=== PATIENT | male | born 1950 | race Caucasian/White ===

== ENCOUNTER 2023-01-18 14:07 | Emergency (ER) | payer OTHER ==
[~2023-01-18] VITALS: Ht 180.3 cm; Wt 57.6 kg
[2023-01-18 14:15] VITALS: BP_SYST 121; PULSE 100; RESP 18; TEMP 98.3; O2SAT 98
[2023-01-18] MEDS ORDERED: NACL 0.9% 1,000 ML IV ONE (14:30)
[2023-01-18 15:09] LABS: BASOPHILS # (AUTO) 0.1 K/uL (0.0-0.2); EOSINOPHILS # (AUTO) 0.1 K/uL (0.0-0.4); EOSINOPHILS % (AUTO) 1.3 % (0.0-4.0); HEMATOCRIT 41.5 % (36-54); HEMOGLOBIN 13.7 g/dL (14.0-18.0); LYMPHOCYTES # (AUTO) 0.8 K/uL (1.0-5.5); LYMPHOCYTES % (AUTO) 14.8 % (20.5-51.5); MEAN CORPUSCULAR HEMOGLOBIN 30 pg (27-31); MEAN CORPUSCULAR HGB CONC 33 % (32-36); MEAN CORPUSCULAR VOLUME 91 fL (79.0-98.0); MONOCYTES # (AUTO) 0.4 K/uL (0.0-1.0); MONOCYTES % (AUTO) 6.8 % (1.7-9.3); NEUTROPHILS # (AUTO) 4.1 K/uL (1.8-7.7); NEUTROPHILS % (AUTO) 76.1 % (40.0-70.0); PLATELET COUNT (AUTO) 295 K/uL (130-430); RED BLOOD CELL COUNT(AUTO) 4.56 MIL/uL (4.2-6.2); RED CELL DISTRIBUTION WIDTH 13.7 % (9.0-15.0); WHITE BLOOD COUNT (AUTO) 5.4 K/uL (4.8-10.8)
[2023-01-18 15:40] LABS: ALANINE AMINOTRANSFERASE 26 U/L (12-78); ALBUMIN 3.5 g/dL (3.4-4.8); ANION GAP 8 (5-15); ASPARTATE AMINOTRANSFERASE 6 U/L (10-37); CARBON DIOXIDE 29 mmol/L (23-29); CHLORIDE 96 mmol/L (98-107); CREATININE 0.75 mg/dL (0.55-1.30); POTASSIUM 4.1 mmol/L (3.5-5.1); SODIUM SERUM 133 mmol/L (136-145); TOTAL BILIRUBIN 0.4 mg/dL (0.0-1.0); TOTAL PROTEIN, SERUM 6.2 g/dL (6.4-8.3); UREA NITROGEN, BLOOD 16 mg/dL (8-21)
[2023-01-18 15:41] LABS: GFR AFRICAN AMERICAN 132 mL/min (>90); GFR NON AFRICAN-AMERICAN 109 mL/min (>90)
[2023-01-18 15:42] LABS: GLUCOSE 533 mg/dL (74-106)
[2023-01-18 16:08] LABS: ACETONE, SERUM TRACE (NEGATIVE)
[2023-01-18] MEDS ORDERED: METF-518 PO (16:10)
[2023-01-18 16:58] VITALS: BP_SYST 145; PULSE 84; RESP 16; TEMP 98.3; O2SAT 98
== END 2023-01-18 17:06 | disposition home or self-care (01) ==
LOC: SED 14:07
DX: R73.9 Hyperglycemia, unspecified (principal); R63.1 Polydipsia; R35.0 Frequency of micturition; Z79.899 Other long term (current) drug therapy
CPT/HCPCS: 99283; 96360; 80053; 82009; 82962; 85025; 36415; 36600; 82803; 82800; J7030